=== PATIENT | male | born 1975 | race Caucasian/White ===

== ENCOUNTER → 2020-07-01 | Outpatient (CLI) | payer OTHER ==
[~2020-07-01] VITALS: Ht 177.8 cm; Wt 120.2 kg
[~2020-07-01] MED LIST: CONTRAST GIVEN. MC PRN; IOHEXOL 240 MG/ML 50ML VIAL. PO ONE; IOHEXOL 300 MG/ML 100ML VIAL. IV ONE; SINCALIDE 2.4 MCG in IV NORMAL SALINE 50ML 30 ML IV ONE; TELM20TA PO
--- NOTE | 2020-07-01 11:05 | RAD ---
INDICATION: Abdomen pain. COMPARISON: None. TECHNIQUE: 5.5mCi of Tc99m Choletec was injected intravenously followed by scintigraphic images of the abdomen. 2.4 mcg of CCK was then injected and a gallbladder ejection fraction was calculated. FINDINGS: Appropriate radiotracer clearance from the blood pool. Appropriate radiotracer excretion into the biliary tree. Prompt passage of contrast into the small bowel. Visualization of the gallbladder prior to the 60 minute time point. Gallbladder ejection fraction is 35 percent. IMPRESSION: 1. No scintigraphic evidence of acute cholecystitis or high grade biliary obstruction. 2. Gallbladder ejection fraction is borderline low. Would correlate for possible causes such biliary dyskinesia. Electronically signed by: Deven Galdamez MD (07/01/2020 11:02 AM) [id number]
--- NOTE | 2020-07-01 14:28 | RAD ---
EXAM: CT Abdomen with IV contrast INDICATION: Reason: RUQ ABD PAIN / Spl. Instructions: INJ 75ML OMNI 300 OMNI 240 30ML PO / History: TECHNIQUE: Multi-detector row CT images were acquired from the lung bases through the abdomen with the use of IV contrast. Sagittal and coronal images were acquired from the transaxial data. All CT scans performed at this facility utilize dose optimization techniques as appropriate to the exam, including the following: Automated exposure control and adjustment of the mA and/or KV according to patient size (this includes techniques or standardized protocols for targeted exams where dose is indication/reason for exam). IV CONTRAST: Administered ORAL CONTRAST: Administered COMPARISON: HIDA scan report of 07/01/2020 FINDINGS: LOWER CHEST: Unremarkable LIVER: Liver is borderline enlarged at 18.3 cm but this may be commensurate to patient body habitus. BILIARY SYSTEM: Gallbladder is unremarkable. Bile ducts are not dilated. PANCREAS: Unremarkable SPLEEN: Unremarkable ADRENALS: Unremarkable KIDNEYS & URETERS: Unremarkable GASTROINTESTINAL: The stomach, small bowel, and colon are unremarkable. The appendix is normal. MESENTERY/PERITONEUM/RETROPERITONEUM: Unremarkable VASCULAR: Unremarkable LYMPH NODES: No adenopathy OSSEOUS & SOFT TISSUES: Unremarkable IMPRESSION: Unremarkable CT of the abdomen. No specific cause for right upper quadrant abdominal pain is identified with borderline enlargement of the liver noted, of doubtful clinical significance. Electronically signed by: Stephanie Martinez MD (07/01/2020 2:25 PM) [id number]
== END | disposition home or self-care (01) ==
LOC: NM 08:28
PROVIDERS: ATTEND Internal Medicine Gastroenterology
DX: R16.0 Hepatomegaly, not elsewhere classified (principal); R10.11 Right upper quadrant pain
CPT/HCPCS: 74160; 78227; A9537; J2805; Q9966; Q9967

== ENCOUNTER → 2020-08-06 | Outpatient (CLI) | payer OTHER ==
[~2020-08-06] MED LIST changes: -CONTRAST GIVEN. MC PRN; -IOHEXOL 240 MG/ML 50ML VIAL. PO ONE; -IOHEXOL 300 MG/ML 100ML VIAL. IV ONE; +OXYC1TAB15 PO; -SINCALIDE 2.4 MCG in IV NORMAL SALINE 50ML 30 ML IV ONE
== END ==
LOC: LAB 12:11
PROVIDERS: ATTEND Surgery
DX: Z01.812 Encounter for preprocedural laboratory examination (principal); Z20.828 Contact with and (suspected) exposure to other viral communicable diseases; G24.9 Dystonia, unspecified
CPT/HCPCS: U0003-CS

== ENCOUNTER 2020-08-10 06:06 | Day surgery (SDC) | payer OTHER ==
[~2020-08-10] VITALS: Ht 177.8 cm; Wt 124.7 kg
[~2020-08-10 06:06] MED LIST changes: +ACETAMINOPHEN 500 MG TABLET PO ONE; +BUPIVACAINE-EPI 0.25%-1:200000 MPF 30 ML VIAL. INJ ONE; -OXYC1TAB15 PO; +ceFAZolin SODIUM 3 GM in IV DEXTROSE 5% 100ML 100 ML IV PRN
[2020-08-10] MEDS ORDERED: fentaNYL PF VIAL 100 MCG/2 ML VIAL IV PRN (07:00)
[2020-08-10] MEDS ORDERED: ONDANSETRON PF 4 MG/2 ML VIAL. IV PRN (07:00)
[2020-08-10] MEDS ORDERED: MORPHINE SULFATE 2 MG/ML VIAL. IV PRN (07:00)
[2020-08-10] MEDS ORDERED: PROCHLORPERAZINE 10 MG/2 ML VIAL. IV PRN (07:00)
[2020-08-10] MEDS ORDERED: HYDROmorphone 2 MG/ML VIAL IV PRN (07:00)
[2020-08-10] MEDS ORDERED: IV RINGERS,LACTATED 1000ML 1,000 ML IV SCH (07:00)
[2020-08-10] MEDS ORDERED: SURGICEL HEMOSTAT 4X8 EACH. ONE (07:11)
[2020-08-10] MEDS ORDERED: IOHEXOL 300 MG/ML 50 ML VIAL. ONE (07:11)
[2020-08-10] MEDS ORDERED: MIDAZOLAM HCL/PF 2 MG/2 ML VIAL. ONE (07:13)
[2020-08-10] MEDS ORDERED: ROCURONIUM 50 MG/5 ML VIAL. ONE (07:13)
[2020-08-10] MEDS ORDERED: fentaNYL PF VIAL 100 MCG/2 ML VIAL ONE ×3 (07:14→08:25)
[2020-08-10] MEDS ORDERED: NEOSTIGMINE METHYLSULFATE 5 MG/5 ML SYRINGE. ONE (07:40)
[2020-08-10] MEDS ORDERED: GLYCOPYRROLATE 1 MG/5 ML VIAL. ONE (07:40)
[2020-08-10] MEDS ORDERED: ONDANSETRON PF 4 MG/2 ML VIAL. ONE (08:06)
[2020-08-10] MEDS ORDERED: DEXAMETHASONE SOD PHOS 4 MG/ML VIAL ONE (08:06)
[2020-08-10] MEDS ORDERED: PROPOFOL 10 MG/ML (20ML) VIAL. IV ONE (08:06)
[2020-08-10] MEDS ORDERED: SEVOFLURANE 31 TO 60 MINUTES. IH ONE (08:06)
[2020-08-10] MEDS ORDERED: LIDOCAINE 2% PF 5 ML VIAL. ONE (08:06)
--- NOTE | 2020-08-10 08:11 | PDOC4 ---
Operative Note Operative Note Date: 1019 at 0808 Preoperative diagnosis: Biliary dyskinesia Postoperative diagnosis: Same Procedure: Laparoscopic cholecystectomy Surgeon: Ken Specimen: Gallbladder Dictation: Patient is a 45-year-old male with right upper quadrant abdominal pain and HIDA scan showing abnormal ejection fraction. Procedure of laparoscopic cholecystectomy was explained to the patient detail was benefits were also discussed including bleeding infection injury to intra-abdominal contents possibly necessitating further open operations alternatives to this procedure also discussed with the patient who seemed to understand and gave both verbal and written consent to have the procedure performed. Patient was taken to the operating room placed in the supine position general anesthesia was initiated once patient was sleeping intubated his abdomen was prepped and draped usual sterile fashion using ChloraPrep. Area just below the umbilicus injected quarter percent Marcaine with epinephrine incision was made 11 blade scalpel and a varies needle was placed within the abdomen creating pneumoperitoneum once this was complete the millimeter port was placed and a 5 mm camera's placed within the abdomen which was inspected no other red maladies were noted. A 5 mm port was placed in the epigastrium a 5 mm port was placed in the right midabdomen and a 5 mm port was placed in the right lateral abdomen all under direct visualization. The dome of the gallbladder is grasped retracted cephalad the infundibulum of the gallbladder is grasped tract and laterally exposing the triangle. Adherent tissues the triangle were taken down exposing the cystic duct and cystic artery both were doubly clipped and transected the gallbladder was taken off the liver with hook electrocautery placed in the Endo Catch bag and removed the umbilicus. The right upper quadrant was irrigated and suctioned dry hemostasis deemed appropriate the pneumoperitoneum was reduced all ports were removed the fascial defect at the umbilicus was closed with a [id number] 0 Vicryl suture and the skin was reapproximated all port sites for subcuticular Monocryl Mastisol Steri-Strips and island dressings were applied. Patient was awakened and extubated in the operating room taken to recovery in stable condition all sponge instrument needle counts listed as correct estimated blood loss 10 mL. LORENZO MARTIN MD Aug 10, 2020 08:10
--- NOTE | 2020-08-10 08:12 | DISCH ---
DISCHARGE INSTRUCTIONS Condition on Discharge Condition on Discharge: Stable Activity After Discharge Activity Instructions for Disc: Avoid exertion Other activity instructions: No lifting more than 20 pounds for 2 weeks Diet after Discharge Diet after Discharge: Low Fat Wound Incision Care Other wound/incision instructi: May shower in 24 hours Contacting the after DC Call your doctor for: If your condition worsens Follow-Up Follow up with: Dr. Martin in 2 weeks LORENZO MARTIN MD Aug 10, 2020 08:12
[2020-08-10] MEDS: fentaNYL PF VIAL 100 MCG/2 ML VIAL IV PRN ×2 (08:30→08:45)
[2020-08-10] MEDS ORDERED: OXYC1TAB15 PO (08:35)
[2020-08-10] MEDS ORDERED: oxyCODONE/APAP 5/325 1 TAB TABLET PO ONE (08:45)
[2020-08-10] MEDS ORDERED: hydrALAZINE 20 MG/ML VIAL. ONE (09:16)
[2020-08-10 09:25] VITALS: BP 173/91
[2020-08-10] MEDS ORDERED: hydrALAZINE 20 MG/ML VIAL. IVP ONE (09:30)
--- NOTE | 2020-08-12 19:09 | PATHOLOGY ---
[facility] Accession Number: [id number] . 01 Material submitted: . gallbladder - GALLBLADDER AND CONTENTS . 01 Clinical history: . BILIARY DYSKENESIA . 02 Diagnosis: Gallbladder, cholecystectomy: - Chronic cholecystitis. 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 02 Comment: There are no calculi identified within the gallbladder lumen or specimen container. There is no evidence of malignancy. (JPM:nelli; 08/12/2020) . 02 Electronically signed: . Kevin Bauman MD, Pathologist NPI- [id number] . 01 Gross description: . The specimen is received in formalin, labeled "Shabbir Padilla, gallbladder and contents". Received is a previously punctured gallbladder measuring 6.3 x 3.1 x 1.6 cm in greatest dimensions displaying a albert-eden serosal surface. Opening the specimen reveals a velvety, bile-stained mucosa with a gallbladder wall thickness of 0.1 cm. Calculi are not present, and no masses or lesions are noted grossly. Leather Belt Shaper sections, to include the proximal margin, are submitted in cassette A1. (CAA; 08/11/2020) QAC/QAC 08/11/2020 1453 Local . 02 Pathologist provided ICD-10: K81.1 . 02 CPT . 538271 Specimen Comment: A courtesy copy of this report has been sent to [phone] Specimen Comment: Report sent to Performed at: 01 [facility] [address], [place], [place] [id number] MD Javid Santoro MD Phone: [phone] Performed at: 02 [facility] [address] [place], [place] [id number] MD Kevin Bauman MD Phone: [phone]
== END 2020-08-10 10:10 | disposition home or self-care (01) ==
LOC: SURG 06:06
PROVIDERS: ATTEND Surgery
DX: K81.1 Chronic cholecystitis (principal); K82.8 Other specified diseases of gallbladder; Z79.899 Other long term (current) drug therapy
CPT/HCPCS: 47562; A7015; J0360; J1100; J2250; J2405; J2704; J2710; J3010; J3490; J7030; Q9967